=== PATIENT | female | born 1980 | race Caucasian/White ===

== ENCOUNTER 2024-07-10 18:36 | Inpatient (IN) | payer OTHER, SELFPAY ==
[2024-07-10] VITALS (16 sets, daily range): BP systolic 86–146; BP diastolic 47–87; BMI 41.8
[2024-07-10 10:54] LABS: % Basophils 0.7 % (0-2); % Eosinophils 0.1 % (0-6); % Immature Granulocytes 0.4 % (0-0.5); % Lymphocytes 8.6 % (20.5-51.1); % Neutrophils 87.2 % (42.2-75.2); Absolute Basophils 0.1 10^3/uL (0-0.2); Absolute Immature Granulocytes 0.1 10^3/uL (0-0.05); Absolute Monocytes 0.4 10^3/uL (0.1-0.6); Absolute Neutrophils 10.2 10^3/uL (1.4-6.5); Hematocrit 39.3 % (37.0-47.0); Hemoglobin 13.5 g/dL (12.0-16.0); Mean Corp Hgb Conc. 34.4 g/dL (33.0-37.0); Mean Corpuscular Hgb 26.1 pg (27.0-31.0); Mean Corpuscular Volume 75.9 fL (81.0-99.0); Mean Platelet Volume 10.6 fL (7.4-10.4); Nucleated Red Blood Cells % 0 %; Platelet Count 319 10^3/uL (130-400); Red Blood Cell Count 5.18 10^6/uL (4.20-5.40); White Blood Cell Count 11.7 10^3/uL (4.8-10.8)
[2024-07-10 11:02] LABS: HCG, Serum Qualitative Screen Negative
[2024-07-10 11:15] LABS: ALT (SGPT) 22 U/L (0-35); AST (SGOT) 29 U/L (14-36); Albumin 4.9 g/dl (3.5-5.0); Alkaline Phosphatase 94 U/L (38-126); Blood Urea Nitrogen 9 mg/dl (7-17); Calcium 10.1 mg/dl (8.4-10.2); Carbon Dioxide 14 mmol/L (22-30); Chloride 105 mmol/L (98-107); Glucose 133 mg/dl (70-99); Potassium 4.1 mmol/L (3.5-5.1); Sodium 141 mmol/L (135-145); Total Bilirubin 0.8 mg/dl (0.2-1.3); Total Protein 7.7 g/dl (6.3-8.2); eGFR > 60.00
--- NOTE | 2024-07-10 11:34 | ED.GENMED ---
History of Present Illness
<BEN Giraldo Last Filed: 07/10/24 17:57>
General
Chief Complaint: Abdominal Pain
Source: patient
Exam Limitations: none
Time Seen by Provider: 07/10/24 11:27
Nursing documentation reviewed up to this point in time: agreed with
History of Present Illness
History of Present Illness:
44-year-old female with a past medical history of asthma, cholelithiasis status postcholecystectomy presenting emergency department today with concerns of diffuse abdominal pain patient reports that this started at 4 AM this morning. Patient rates
her pain a 7 out of 10 and notes that it is constant. Patient notes that it does not get worse with movement. The pain does not radiate anywhere. Patient denies any diarrhea, constipation, urinary symptoms. Patient denies any flank pain.
Patient is never had pain like this before. Patient denies any fevers or chills. Of note, patient had nausea and anorexia yesterday but no pain. Patient denies any past abdominal surgeries other than cholecystectomy. Patient denies any syncopal
episodes, headache, URI symptoms. Patient denies any recent long distance travel.
Past History
<BEN Giraldo Last Filed: 07/10/24 17:57>
Past History
ED Past Medical History: Asthma
ED Past Surgical History: , Gynecological (D&E) and Other ([place] teeth extraction)
Social History
Tobacco: Non-smoker
Personal:
Living: with family
Employment: Employed
Review of Systems
<BEN Giraldo Last Filed: 07/10/24 17:57>
Review of Systems
All Other Systems: ROS reviewed and negative except as documented in HPI and ROS
Phy Exam
<BEN Giraldo Last Filed: 07/10/24 17:57>
Physical Exam
Physical Exam:
General: Patient is nontoxic appearing; she is actively vomiting
Skin: Warm and dry, no rashes or lesions
Head: Normocephalic, atraumatic
Eyes: Sclera non-icteric. EOMs intact.
Cardiac: Regular rate and rhythm, no murmurs
Peripheral Vascular: No lower extremity swelling or edema.
Pulm: Normal respiratory effort, no wheezes, rales, or rhonchi
Abdomen: Moderate diffuse nonfocal abdominal tenderness to palpation. Normoactive bowel sounds. No palpable abdominal masses.
Neuro: CN II-XII intact, no focal neurologic deficits.
Psychiatric: Appropriate mood and affect.
Course
Analt;Abbie Tobin PA-C - Last Filed: 07/10/24 17:57>
Orders/Labs/Results
Orders:
Orders
07/10/24 10:35
Test Result ONCE
07/10/24 10:38
Comprehensive Metabolic Panel Urgent
HCG, Serum Qualitative Screen Urgent
Lipase Urgent
Comment: ADD
07/10/24 10:42
Complete Blood Count/With Diff Urgent
07/10/24 11:34
Add On- LAB Urgent
Tests Added?: lipase
07/10/24 11:47
Ketorolac [Toradol] 15 mg IV NOW STA
Ondansetron Injectable [Zofran] 4 mg IV NOW STA
07/10/24 11:48
CT Abd/pelvis W Iv Cont Urgent
Comment:
Reason For Exam: diffuse abdominal pain
0.9% Sodium Chloride 1000 ml [Nss] 1,000 ml IV BOLUS
07/10/24 12:25
Add On- LAB Urgent
Tests Added?: lactic acid
07/10/24 13:08
Lactic Acid Routine
Urinalysis Reflex To Culture Urgent
Date Specimen was Collected: 07/10/24
Time Specimen was Collected: 13:06
Urine Microscopic Reflex Cult Urgent
07/10/24 13:27
Pantoprazole [Protonix IV] 40 mg IV NOW STA
07/10/24 13:28
Diphenhydramine [Benadryl] 25 mg IV NOW STA
Metoclopramide [Reglan] 10 mg IV NOW STA
07/10/24 13:30
0.9% Sodium Chloride 1000 ml [Nss] 1,000 ml Promethazine [Phenergan] 25 mg IV 125 mls/hr
07/10/24 14:33
Basic Metabolic Panel Urgent
07/10/24 15:53
Acetaminophen [Tylenol] 650 mg .ROUTE .STK-MED ONE
07/10/24 16:10
0.9% Sodium Chloride 500 ml [Nss] 500 ml IV BOLUS
Acetaminophen [Tylenol] 650 mg PO NOW STA
07/10/24 16:23
Lactate Level [Lactic Acid] Urgent
Abnormal Lab Results
07/10/24 07/10/24 07/10/24
10:38 10:42 13:08
WBC 11.7 H 10^3/uL
(4.8-10.8)
MCV 75.9 L fL
(81.0-99.0)
MCH 26.1 L pg
(27.0-31.0)
MPV 10.6 H fL
(7.4-10.4)
Abs Immat Gran (auto) 0.1 H 10^3/uL
(0-0.05)
Absolute Neuts (auto) 10.2 H 10^3/uL
(1.4-6.5)
Absolute Lymphs (auto) 1.0 L 10^3/uL
(1.2-3.4)
Neutrophils % 87.2 H %
(42.2-75.2)
Lymphocytes % 8.6 L %
(20.5-51.1)
Carbon Dioxide 14 L* mmol/L
(22-30)
Glucose 133 H mg/dl
(70-99)
Lactic Acid 2.2 H mmol/L
(0.7-2.0)
Urine Ketones 3+ A
(Negative)
Ur Occult Blood Reflex 3+ A
(Negative)
Urine Bacteria (Reflex) Few A
(Negative)
07/10/24
14:33
WBC
MCV
MCH
MPV
Abs Immat Gran (auto)
Absolute Neuts (auto)
Absolute Lymphs (auto)
Neutrophils %
Lymphocytes %
Carbon Dioxide 19 L mmol/L
(22-30)
Glucose
Lactic Acid
Urine Ketones
Ur Occult Blood Reflex
Urine Bacteria (Reflex)
07/10/24 10:42
07/10/24 14:33
Vital Signs
Initial and Last Documented VS:
Initial Vital Signs
Temp Pulse Resp BP Pulse Ox
98 F 80 16 104/70 100
07/10/24 10:33 07/10/24 10:33 07/10/24 10:33 07/10/24 10:33 07/10/24 10:33
Last Documented Vital Signs
Temp Pulse Resp BP Pulse Ox
100.1 F 104 18 98/87 98
07/10/24 17:19 07/10/24 17:19 07/10/24 17:19 07/10/24 17:19 07/10/24 17:19
<Mickey Hathaway MD - Last Filed: 07/10/24 15:46>
Orders/Labs/Results
Orders:
Orders
07/10/24 10:35
Test Result ONCE
07/10/24 10:38
Comprehensive Metabolic Panel Urgent
HCG, Serum Qualitative Screen Urgent
Lipase Urgent
Comment: ADD
07/10/24 10:42
Complete Blood Count/With Diff Urgent
07/10/24 11:34
Add On- LAB Urgent
Tests Added?: lipase
07/10/24 11:47
Ketorolac [Toradol] 15 mg IV NOW STA
Ondansetron Injectable [Zofran] 4 mg IV NOW STA
07/10/24 11:48
CT Abd/pelvis W Iv Cont Urgent
Comment:
Reason For Exam: diffuse abdominal pain
0.9% Sodium Chloride 1000 ml [Nss] 1,000 ml IV BOLUS
07/10/24 12:25
Add On- LAB Urgent
Tests Added?: lactic acid
07/10/24 13:08
Lactic Acid Routine
Urinalysis Reflex To Culture Urgent
Date Specimen was Collected: 07/10/24
Time Specimen was Collected: 13:06
Urine Microscopic Reflex Cult Urgent
07/10/24 13:27
Pantoprazole [Protonix IV] 40 mg IV NOW STA
07/10/24 13:28
Diphenhydramine [Benadryl] 25 mg IV NOW STA
Metoclopramide [Reglan] 10 mg IV NOW STA
07/10/24 13:30
0.9% Sodium Chloride 1000 ml [Nss] 1,000 ml Promethazine [Phenergan] 25 mg IV 125 mls/hr
07/10/24 14:33
Basic Metabolic Panel Urgent
07/10/24 15:53
Acetaminophen [Tylenol] 650 mg .ROUTE .STK-MED ONE
07/10/24 16:10
0.9% Sodium Chloride 500 ml [Nss] 500 ml IV BOLUS
Acetaminophen [Tylenol] 650 mg PO NOW STA
07/10/24 16:23
Lactate Level [Lactic Acid] Urgent
Abnormal Lab Results
07/10/24 07/10/24 07/10/24
10:38 10:42 13:08
WBC 11.7 H 10^3/uL
(4.8-10.8)
MCV 75.9 L fL
(81.0-99.0)
MCH 26.1 L pg
(27.0-31.0)
MPV 10.6 H fL
(7.4-10.4)
Abs Immat Gran (auto) 0.1 H 10^3/uL
(0-0.05)
Absolute Neuts (auto) 10.2 H 10^3/uL
(1.4-6.5)
Absolute Lymphs (auto) 1.0 L 10^3/uL
(1.2-3.4)
Neutrophils % 87.2 H %
(42.2-75.2)
Lymphocytes % 8.6 L %
(20.5-51.1)
Carbon Dioxide 14 L* mmol/L
(22-30)
Glucose 133 H mg/dl
(70-99)
Lactic Acid 2.2 H mmol/L
(0.7-2.0)
Urine Ketones 3+ A
(Negative)
Ur Occult Blood Reflex 3+ A
(Negative)
Urine Bacteria (Reflex) Few A
(Negative)
07/10/24
14:33
WBC
MCV
MCH
MPV
Abs Immat Gran (auto)
Absolute Neuts (auto)
Absolute Lymphs (auto)
Neutrophils %
Lymphocytes %
Carbon Dioxide 19 L mmol/L
(22-30)
Glucose
Lactic Acid
Urine Ketones
Ur Occult Blood Reflex
Urine Bacteria (Reflex)
07/10/24 10:42
07/10/24 14:33
Vital Signs
Initial and Last Documented VS:
Initial Vital Signs
Temp Pulse Resp BP Pulse Ox
98 F 80 16 104/70 100
07/10/24 10:33 07/10/24 10:33 07/10/24 10:33 07/10/24 10:33 07/10/24 10:33
Last Documented Vital Signs
Temp Pulse Resp BP Pulse Ox
100.1 F 104 18 98/87 98
07/10/24 17:19 07/10/24 17:19 07/10/24 17:19 07/10/24 17:19 07/10/24 17:19
<Abbie Tobin PA-C - Last Filed: 07/10/24 17:57>
MDM/Problems Addressed
Differential Diagnosis Includes:
ddx include gastritis, duodenitis, appendicitis, pancreatitis, hiatal hernia, colitis, diverticulitis
MDM/Problems Addressed:
Abdominal pain:
44-year-old female presents emergency department with diffuse abdominal pain, nausea and vomiting. The abdominal pain started this morning and woke her from sleep but her nausea started last night. Patient denies any fevers or chills. Patient
never had anything like this before. Patient denies any abdominal surgeries other than cholecystectomy, denies any constipation or diarrhea. Patient on exam is well-appearing, she is afebrile. She does have diffuse abdominal tenderness to
palpation, and a mild leukocytosis but no elevation in her LFTs. Initial blood work and her CMP did show a acidosis with elevated anion gap. Her lactic was 2.2. She was given IV fluids, Toradol, and Zofran. CT scan of the abdomen was performed
which was negative for any acute intra-abdominal neurology or any surgical emergency. Patient does tirzepatide and does use marijuana, so this may be a cause for her symptoms. However, gastritis is also a likely possibility as patient notes she is
also had issues with reflux and has an endoscopy scheduled for next week. Patient was started on a PPI and sent home with Chayo as well. Patient stable for discharge.
Chronic conditions affecting care:
asthma, anxiety disorder
Acute Exacerbation and/or Progression of Chronic Illness:
n/a
<Abbie Tobin PA-C - Last Filed: 07/10/24 17:57>
*Pulse Oximetry
Patient hypoxic: no
*Critical Care Note
Total Time (30-74mins, 75-104mins- exclusive of procedures): Not Applicable
Data Reviewed
Review of Other/Old Records Reveals: Records (Reviewed ER physician documentation from 09/02/2016 where patient was seen and subsequently admitted gallbladder removal)
Source: patient and records
Prescriptions/Medications Considered But Not Given:
n/a
Further Testing Considered But Not Given:
n/a
<Abbie Tobin PA-C - Last Filed: 07/10/24 17:57>
Update Note
Update Note:
14:11--patient notes improvement in her symptoms but still persistent nausea, no longer vomiting
14:30-- patient requesting PO challenge and symptom reassessment
15:27-- patient's symptoms have improved, her bicarb has improved, patient is stable for discharge.
16:00-- prior to discharge, patient's blood pressure was 96/57 and her temperature was 99 F and attending and I were alerted, will give Tylenol and fluids and reassess
17:05--patient continues to feel well, has not had any additional episodes of vomiting, her blood pressure is now normalized and her lactic acid is within normal range. Patient stable for discharge.
17:20--patient BP fails to improve and temperature does not improve with Tylenol. Will admit for observation
ED Attending Note
<Abbie Tobin PA-C - Last Filed: 07/10/24 17:57>
-
Portions of this chart may have been created with voice recognition software.� Occasional wrong word or��sound alike� substitutions may have occurred due to the inherent limitations of voice recognition software.
<Mickey Hathaway MD - Last Filed: 07/10/24 15:46>
ED Attending Note
Patient seen and examined by attending physician: Yes
ED Attending Note:
I have seen and evaluated the patient with a [id number] encounter. I have spoken to the advance practicer provider and involved in the medical history, the physical exam, medical decision making.
Evaluation and management service: agree unless noted differently below.
Results interpretation: agree unless noted differently below.
Focused HPI: 44-year-old female with history of asthma, obesity, hyperlipidemia who presents to the emergency room for evaluation of nausea and vomiting. Patient reports that she had nausea all day yesterday, woke up at 4 AM this morning with
severe nausea and has been vomiting intermittently throughout the day since. She reports vague epigastric discomfort as well. Denies any diarrhea or constipation. Denies any urinary symptoms. She says she has had chronic issues with nausea with
certain foods since she had her gallbladder removed 7 years ago but has never had symptoms like this. She has been on tirzepatide weekly injections for weight loss since January; she says she occasionally gets nauseated with this but never symptoms
this intense. She does admit to marijuana use. Denies any recent alcohol use.
Physical exam: Awake and alert. Holding emesis bag usually dry heaving. Abdomen soft, mildly tender epigastrium. No rebound or guarding. No masses.
Medical Decision Makin-year-old female presents for evaluation of nausea vomiting epigastric discomfort x 24 hours. Vitals normal. Exam as above. Labs sent off including a CBC which showed marginal leukocytosis, CMP which showed metabolic
acidosis with bicarb of 14 suspect likely GI losses and lactic acidosis with consistent retching. LFTs and lipase normal. UA negative for infection. CT negative for any acute pathology. Suspect acute gastritis versus side effect from tirzepatide
versus cannabinoid hyperemesis. Will treat with PPI. Zofran and fluids. Reassess.
Patient no improvement in nausea after Zofran, will treat with Reglan and Benadryl reassess. If improving can discharge with antiemetic and PPI, if not improving and still vomiting/unable to tolerate p.o. will admit for continued treatment.
Patient improved with PPI and Reglan, Benadryl. Tolerating p.o. food and liquids. Repeat BMP shows improving acidosis. No additional vomiting. No indication for admission at this point in time, plan to discharge with strict return precautions.
Patient actually has an endoscopy scheduled for Monday and she will keep this appointment. Spoke about return precautions all questions answered.
Discharge Plan
Departure
Patient Disposition: Admit
Date of Disposition: 07/10/24
Time of Disposition: 17:56
Admit to: Med/Surg
Presentation/result/management discussed w/ accepting MD/DO: Hospitalist
Patient with high blood pressure during this ER visit?: No
Condition: Good
Discharge Problem:
Abdominal pain, Acute hypotension
Instructions: Gastritis, Abdominal Pain
Prescriptions:
New
ondansetron 4 mg tablet,disintegrating
4 mg PO Q6H PRN (Reason: nausea and vomiting) Qty: 8 0RF
pantoprazole 20 mg tablet,delayed release (DR/EC)
20 mg PO DAILY Qty: 30 0RF
No Action
fluoxetine [Prozac] 40 mg Capsule
40 mg PO HS
atorvastatin [Lipitor] 10 mg Tablet
10 mg PO DAILY
clonazepam 0.5 mg Tablet
0.5 mg PO BIDPRN PRN (Reason: anixety)
famotidine [Pepcid] 20 mg Tablet
20 mg PO DAILYPRN PRN (Reason: gerd)
calcium carbonate [Tums] 200 mg calcium (500 mg) Tablet,Chewable
200 mg PO BIDPRN PRN (Reason: gerd)
bismuth subsalicylate [Pepto-Bismol] 262 mg Tablet,Chewable
2 tab PO TIDPRN PRN (Reason: gerd)
montelukast [Singulair] 10 mg Tablet
10 mg PO QPM
hydroxyzine pamoate 25 mg Capsule
25 mg PO HSPRN PRN (Reason: sleep)
bupropion HCl [Wellbutrin XL] 150 mg Tablet Extended Release 24 Hr
150 mg PO DAILY
budesonide-formoterol [Symbicort] 160-4.5 mcg/actuation Hfa Aerosol Inhaler
2 inh INHALATION R BID
Vraylar 1.5 mg Capsule
1.5 mg PO HS
Zepbound 5 mg/0.5 mL Pen Injector
5 mg SC TU
Referrals:
Joann Lebron DO [Family Provider] -
Interventions
Interventions:
*Risk Screen - Suicide Last Done: 07/10/24 13:00
*General Assessment Last Done: 07/10/24 13:00
*Neglect/Abuse Screening Last Done: 07/10/24 13:00
ED- Fall Risk Assessment Last Done: 07/10/24 14:41
*ED COVID-19 Vaccine History Last Done: 07/10/24 13:00
AO-[id number]-Fzluyhnufy Assessment Last Done: 07/10/24 12:25
Discharge Date and Time
Print Language: PASHTO
[2024-07-10] MEDS: NSS 1000 IV ×2 (11:55→20:09)
[2024-07-10] MEDS: ZOFRAN 4 MG IV (11:58)
[2024-07-10] MEDS: TORADOL 15 MG IV (11:59)
[2024-07-10 13:26] LABS: Urine Albumin Trace (Neg - Trace); Urine Bilirubin Negative (Negative); Urine Color Yellow; Urine Glucose Negative (Negative); Urine Ketone 3+ (Negative); Urine Leukocyte Negative (Negative); Urine Nitrite Negative (Negative); Urine Occult Blood 3+ (Negative); Urine Urobilinogen Negative (Neg - 1+)
[2024-07-10] MEDS: PROTONIX IV 40 MG IV (13:32)
[2024-07-10] MEDS: REGLAN 10 MG IV (13:32)
[2024-07-10] MEDS: BENADRYL 25 MG IV (13:33)
[2024-07-10 13:38] LABS: Lactic Acid 2.2 mmol/L (0.7-2.0)
[2024-07-10 13:41] LABS: Urine Character Slightly Cloudy (Clear); Urine Squamous Cell >30 /LPF (Few)
[2024-07-10 13:42] LABS: Urine Bacteria Few (Negative); Urine Red Blood Cell 0-2 /HPF (0-2); Urine White Cell 0-2 /HPF (0-5)
[2024-07-10 14:03] LABS: Lipase 136 U/L (23-300)
[2024-07-10 15:17] LABS: Blood Urea Nitrogen 7 mg/dl (7-17); Calcium 9.4 mg/dl (8.4-10.2); Carbon Dioxide 19 mmol/L (22-30); Chloride 107 mmol/L (98-107); Estimated Creatinine Clearance 86 ml/min; Glucose 96 mg/dl (70-99); Sodium 141 mmol/L (135-145); eGFR > 60.00
[2024-07-10] MEDS: TYLENOL 650 MG PO (16:17)
[2024-07-10] MEDS: NSS 500 IV (16:17)
--- NOTE | 2024-07-10 18:10 | HPS.HSE ---
Family Physician
-
Family Physician: Joann Lebron
Chief Complaint
-
Nausea and vomiting for few hours during
History of Present Illness
44 years old female presented with nausea vomiting. She started to have nausea whole day yesterday but no vomiting. She subsequently improved and went to bed. She woke up this morning with vomiting, multiple times and generalized abdominal
discomfort. In the emergency room, she had leukocytosis. Scan of the abdomen and pelvis with contrast showed no acute pathology. Patient was given intravenous fluid and she started to feel better. She was noted to have mild temperature around
100.1. Patient denied respiratory symptoms. Denied eating outside or sick contact.
Medical History
Past Medical History
Past Medical History: Reports Other (History of anxiety, asthma)
Past Surgical History: Reports Other (No recent major surgery)
Social History
Tobacco: Non-smoker
Alcohol: None
Drug: None
Personal:
Living: With Family
Employment: Not Employed
Family History
Family History: Not pertinent
Allergies / Home Medications
Allergies reflects when Allergies were last updated in [facility].
Home Medications with original date entered in [facility]
Allergy/Medication List:
Allergies
Allergy/AdvReac Type Severity Reaction Status Date / Time
moxifloxacin HCl Allergy Itching Verified 09/02/16 23:20
[From Avelox]
cat Allergy Itching Uncoded 09/02/16 23:20
dog Allergy Itching Uncoded 09/02/16 23:20
dust Allergy Unknown Uncoded 09/02/16 23:20
tree Allergy Unknown Uncoded 09/02/16 23:20
Home Medications
atorvastatin 10 mg tablet (Lipitor) 10 mg PO DAILY 07/10/24
bismuth subsalicylate 262 mg chewable tablet (Pepto-Bismol) 2 tab PO TIDPRN PRN gerd 07/10/24
budesonide-formoterol HFA 160 mcg-4.5 mcg/actuation aerosol inhaler (Symbicort) 2 inh inhalation R BID 07/10/24
bupropion HCl 150 mg 24 hr tablet, extended release (Wellbutrin XL) 150 mg PO DAILY 07/10/24
calcium carbonate (Tums) 200 mg PO BIDPRN PRN gerd 07/10/24
cariprazine 1.5 mg capsule (Vraylar) 1.5 mg PO HS 07/10/24
clonazepam 0.5 mg tablet 0.5 mg PO BIDPRN PRN anixety 07/10/24
famotidine 20 mg tablet (Pepcid) 20 mg PO DAILYPRN PRN gerd 07/10/24
fluoxetine 40 mg capsule (Prozac) 40 mg PO HS 07/10/24
hydroxyzine pamoate 25 mg capsule 25 mg PO HSPRN PRN sleep 07/10/24
montelukast 10 mg tablet (Singulair) 10 mg PO QPM 07/10/24
ondansetron 4 mg disintegrating tablet 4 mg PO Q6H PRN nausea and vomiting #8 tabs 07/10/24
pantoprazole 20 mg tablet,delayed release 20 mg PO DAILY #30 tabs 07/10/24
tirzepatide (weight loss) 5 mg/0.5 mL subcutaneous pen injector (Zepbound) 5 mg SC TU 07/10/24
Review of Systems
-
History Source: Patient
A 12 point ROS was completed and negative except as noted: Yes
Constitutional: Denies Fever or Chills
EENT: Denies Sore Throat
Respiratory: Denies Cough
Cardiac: Denies Chest Pain
Abdomen/GI: Reports Abdominal Pain, Nausea and Vomiting; Denies Diarrhea
: Denies Dysuria, Frequency or Difficulty Voiding
Musculoskeletal: Denies Muscle Stiffness
Skin: Denies Itching or Rash
Neurological: Denies Numbness
Endocrine: Denies Temp Intolerance
Hematologic/Lymphatic: Denies Bruising
Psych: Reports Anxiety; Denies Depression
Physical Exam
Vital Signs
Vital Signs
Temp Pulse Resp BP Pulse Ox
100.1 F 104 18 98/87 98
07/10/24 17:19 07/10/24 17:19 07/10/24 17:19 07/10/24 17:19 07/10/24 17:19
Physical Exam
General: No Apparent Distress and Comfortable
HEENT: Moist mucous membranes and Atraumatic
Respiratory: Clear
Cardiac: S1/S2 and Regular Rhythm
GI: Soft, Non Tender and Non Distended
Genito-urinary: No costovertebral tender
Musculoskeletal: No Clubbing, No Cyanosis and No Edema
Skin: No Jaundice
Neuro: AO x 3 and No Motor Deficits; No Slurred Speech, Facial Droop or Tremors
Psych: Calm and Intact Judgment/Insight
Laboratory Results
-
07/10/24 10:42
07/10/24 14:33
Laboratory Results
Lactic Acid 2.0 mmol/L (0.7-2.0) 07/10/24 16:23
Total Bilirubin 0.8 mg/dl (0.2-1.3) 07/10/24 10:38
AST 29 U/L (14-36) 07/10/24 10:38
ALT 22 U/L (0-35) 07/10/24 10:38
Alkaline Phosphatase 94 U/L (38-126) 07/10/24 10:38
Lipase 136 U/L (23-300) 07/10/24 10:38
Impression/Plan
-
44 years old female presented with nausea and vomiting
#Acute gastroenteritis, possibly viral induced.
Constellation of tachycardia, leukocytosis, lactic acidosis, low-grade temperature consistent with mild sepsis
Mild hypotension consistent with hypovolemia now with septic shock
No history of sick contact, respiratory symptoms, urinary symptoms or eating in a restaurant
She reported abdominal discomfort, generalized and central but resolved while in the ER. She received intravenous fluid with Tylenol, Zofran, Reglan and Toradol
Will admit the patient to the hospital for intravenous hydration
Urine is cloudy, will give empiric Rocephin and follow-up with urine culture
CAT scan of the abdomen pelvis showed no acute abnormality within the abdomen or pelvis
Lactic acidosis resolved.
Tylenol for fever
As needed Compazine
# History of asthma, continue Symbicort
# History of anxiety disorder, continue with home medication. Mood is a pleasant
#Hyperlipidemia, no changes intended
#Lactic acidosis, resolved
#Leukocytosis, reactive, follow-up with supportive care and repeat CBC in a.m.
# Mild metabolic acidosis, continue with IV hydration
# DVT prophylaxis
Total time spent to see the patient, examine the patient on the floor, review data and lab results, and discuss the treatment plan with the patient, ED doctor and nursing staff around 75 minutes
[2024-07-10] MEDS: SYMBICORT 160/4.5 MCG INHALER 2 PUFF INH (19:55)
[2024-07-10] MEDS: ROCEPHIN 1000 MG IV (20:10)
[2024-07-10] MEDS: STERILE WATER FOR INJECTION 10 ML IV (20:10)
[2024-07-10] MEDS: HEPARIN 5000 UNITS SC (20:10)
[2024-07-10] MEDS: PROZAC 40 MG PO (21:04)
--- NOTE | 2024-07-10 23:05 | PTCARENOTE ---
Received pt from ED @ change of shift. Pt AAOX3, VSS. Pt ambulatory in room, denies any abd pain/nausea/vomiting. Pt able to eat lunch box without issue. IVF infusing. Oriented to room, call gan and plan of care.
[2024-07-11] MEDS: NSS 1000 IV (05:56)
[2024-07-11] MEDS: SYMBICORT 160/4.5 MCG INHALER 2 PUFF INH (07:25)
[2024-07-11] MEDS: WELLBUTRIN XL (24 hour extended release) 150 MG PO (08:19)
[2024-07-11] MEDS: LIPITOR 10 MG PO (08:19)
[2024-07-11] MEDS: HEPARIN SC (08:26)
[2024-07-11 08:27] VITALS: BP 115/73
[2024-07-11 08:38] LABS: Hematocrit 36.4 % (37.0-47.0); Hemoglobin 11.9 g/dL (12.0-16.0); Mean Corp Hgb Conc. 32.7 g/dL (33.0-37.0); Mean Corpuscular Hgb 25.8 pg (27.0-31.0); Mean Corpuscular Volume 78.8 fL (81.0-99.0); Mean Platelet Volume 10.5 fL (7.4-10.4); Platelet Count 252 10^3/uL (130-400); Red Blood Cell Count 4.62 10^6/uL (4.20-5.40); Red Cell Dist. Width 14.6 % (11.5-14.5)
--- NOTE | 2024-07-11 09:05 | W.DCSUMMARY ---
Discharge Summary
Discharge Data
Date of Admission: 07/10/24
Date of Discharge: 07/11/24
-
Pending Results: No
Hospital Course
44 years old female presented with sudden onset of nausea and vomiting with abdominal discomfort. Patient denied fever or chills but was noted to have low-grade temperature around 100.1 in the emergency room. She was clinically dehydrated and was
given intravenous fluids with good improvement of blood pressure. She had mild lactic acidosis and leukocytosis on admission. Patient received supportive care including intravenous Rocephin for possible urinary tract infection. Urine test showed
positive bacteria. Patient denied urinary symptoms. She had significant clinical improvement overnight. She did not have fever. She tolerated diet with no abdominal pain or nausea. Blood pressure stabilized. Leukocytosis resolved. Possibility
of viral syndrome/viral gastroenteritis. Patient was discharged home in a stable condition. She was advised to finish course of oral antibiotic for possible urinary tract infection.
Discharge Plan
-
Patient Disposition: Home (Routine Discharge)
Discharge Diagnosis/Procedures: Nausea and vomiting, resolved, suspect viral syndrome.
Possible UTI, given antibiotic.
Diet: As tolerated
Referrals:
Joann Lebron DO [Family Provider] - in two to three weeks
Prescriptions:
New
ondansetron 4 mg tablet,disintegrating
4 mg PO Q6H PRN (Reason: nausea and vomiting) Qty: 8 0RF
pantoprazole 20 mg tablet,delayed release (DR/EC)
20 mg PO DAILY Qty: 30 0RF
cephalexin 500 mg capsule
500 mg PO Q8H Qty: 6 0RF
Continued
fluoxetine [Prozac] 40 mg Capsule
40 mg PO HS
atorvastatin [Lipitor] 10 mg Tablet
10 mg PO DAILY
clonazepam 0.5 mg Tablet
0.5 mg PO BIDPRN PRN (Reason: anixety)
famotidine [Pepcid] 20 mg Tablet
20 mg PO DAILYPRN PRN (Reason: gerd)
calcium carbonate [Tums] 200 mg calcium (500 mg) Tablet,Chewable
200 mg PO BIDPRN PRN (Reason: gerd)
bismuth subsalicylate [Pepto-Bismol] 262 mg Tablet,Chewable
2 tab PO TIDPRN PRN (Reason: gerd)
montelukast [Singulair] 10 mg Tablet
10 mg PO QPM
hydroxyzine pamoate 25 mg Capsule
25 mg PO HSPRN PRN (Reason: sleep)
bupropion HCl [Wellbutrin XL] 150 mg Tablet Extended Release 24 Hr
150 mg PO DAILY
budesonide-formoterol [Symbicort] 160-4.5 mcg/actuation Hfa Aerosol Inhaler
2 inh INHALATION R BID
Vraylar 1.5 mg Capsule
1.5 mg PO HS
Zepbound 5 mg/0.5 mL Pen Injector
5 mg SC TU
Discharge Orders:
Discharge Patient (As Directed); Ordered 07/11/24
Ordered By: Zaheer Zapata
Discharge Date and Time
Print Language: [id number]
--- NOTE | 2024-07-11 09:09 | W.PN.HOSP.TC ---
Today's Communication/Plan
-
Discharge
Assessment / Plan
Assessment / Plan
Physical Exam
General: No Apparent Distress and Comfortable
HEENT: Moist mucous membranes and Atraumatic
Respiratory: Clear
Cardiac: S1/S2 and Regular Rhythm
GI: Soft, Non Tender and Non Distended
Genito-urinary: No costovertebral tender
Musculoskeletal: No Clubbing, No Cyanosis and No Edema
Skin: No Jaundice
Neuro: AO x 3 and No Motor Deficits; No Slurred Speech, Facial Droop or Tremors
Psych: Calm and Intact Judgment/Insight
44 years old female presented with nausea and vomiting
#Acute gastroenteritis, possibly viral induced.
resolved. She feels better, no N/V, no abdominal pain
No fever or chills.
She is tolerating diet
Normal BP & Temp
Leukocytosis has resolved.
# UTI
No urinary symptoms
Urine was positive for bacteria.
# History of asthma, continue Symbicort
# History of anxiety disorder, continue with home medication. Mood is a pleasant
#Hyperlipidemia, no changes intended
#Lactic acidosis, resolved
#Leukocytosis, reactive, s/p supportive care. Resolved.
# Mild metabolic acidosis, resolving s/p IV hydration
# DVT prophylaxis
Total discharge time spent to see the patient, examine the patient on the floor, review data and lab results, and discuss the discharge plan with the patient, nursing staff around 65 minutes
Anticipated Discharge: Today
Subjective/Interval History
-
Date of Service: July 11, 2024
she feels back to normal
No abd pain
Tolerating diet
denies fever or chills
Objective Data
-
Labs:
Laboratory Results
07/11/24
07:44
WBC 7.0
Hgb 11.9 L
Hct 36.4 L
Plt Count 252 D
Vital Signs:
Vital Signs
Temp Pulse Resp BP Pulse Ox
98.2 F 87 18 115/73 100
07/11/24 08:27 07/11/24 08:27 07/11/24 08:27 07/11/24 08:27 07/11/24 08:27
[2024-07-11 11:07] VITALS: BP 108/75
--- NOTE | 2024-07-11 15:57 | CM ---
met with patient at bedside.patient lives with and 2 children in house with 3 ri[address],her bed and bath is on the second level.she is totally I.she has never had a vn or been to ip rehab in past.
PCP: dr [place] [facility] [place]
PMH:asthma,hld,anxiety,depression
patient is adm with N/V.she now has resolved gastroenteritis,no n/v/ferver,tolerating a diet,stable for dc home with no needs.
== END 2024-07-11 12:54 | disposition home or self-care (01) | DRG 392 ==
LOC: 4 WEST ACU 18:36
PROVIDERS: Emergency Medicine; Physician Assistant; ADMITTING PHYSICIAN Internal Medicine; EMERGENCY PHYSICIAN Emergency Medicine; FAMILY PHYSICIAN Internal Medicine
DX: K52.9 Noninfective gastroenteritis and colitis, unspecified (principal); E87.20 Acidosis, unspecified; N39.0 Urinary tract infection, site not specified; E78.5 Hyperlipidemia, unspecified
CPT/HCPCS: 74177; 80048; 80053; 81003; 81015; 83605; 83690; 84703; 85025; 85027; 87086; 94640; 96361; 96374; 96375; 99285; Q9967

== ENCOUNTER → 2024-07-17 06:42 | Day surgery (SDC) | payer OTHER, SELFPAY | LOC: GI 06:42 | PROVIDERS: ATTENDING PHYSICIAN Internal Medicine Gastroenterology | DX: Z12.11 Encounter for screening for malignant neoplasm of colon (principal); K57.30 Diverticulosis of large intestine without perforation or abscess without bleeding; K64.8 Other hemorrhoids; K29.50 Unspecified chronic gastritis without bleeding; R11.2 Nausea with vomiting, unspecified | CPT/HCPCS: 43239; G0121; 88305; 88342 ==